=== PATIENT | male | born 1940 | race Two or more races ===

== ENCOUNTER → 2017-12-30 | Outpatient (CLI) | payer OTHER | END | disposition home or self-care (01) | LOC: RAD 501 14:48 | DX: M79.642 Pain in left hand (principal); M25.532 Pain in left wrist ==

== ENCOUNTER 2017-12-31 09:02 | Outpatient (CLI) | payer OTHER | END 2017-12-31 09:18 | disposition home or self-care (01) | LOC: RAD 09:02 → LAB 09:02 → RAD 09:18 | DX: M10.9 Gout, unspecified (principal); M13.88 Other specified arthritis, other site; D64.89 Other specified anemias; E88.89 Other specified metabolic disorders; D68.8 Other specified coagulation defects; N39.0 Urinary tract infection, site not specified; A49.02 Methicillin resistant Staphylococcus aureus infection, unspecified site; Z76.89 Persons encountering health services in other specified circumstances ==

== ENCOUNTER 2018-01-04 10:47 | Outpatient (CLI) | payer OTHER ==
[2018-01-09] MEDS ORDERED: COZAAR50 MG PO (11:47)
[2018-01-09] MEDS ORDERED: SYNTHROID125 MCG PO (11:47)
[2018-01-09] MEDS ORDERED: ZOCOR20 MG PO (11:48)
== END 2018-01-04 10:59 | disposition home or self-care (01) ==
LOC: NUCLEAR 10:47
DX: M81.0 Age-related osteoporosis without current pathological fracture (principal)

== ENCOUNTER → 2018-01-04 11:14 | Outpatient (CLI) | payer OTHER ==
[~2018-01-04 11:14] MED LIST: COZAAR50 MG PO; SYNTHROID125 MCG PO; ZOCOR20 MG PO
== END | disposition home or self-care (01) ==
LOC: EKG 11:14
DX: I49.8 Other specified cardiac arrhythmias (principal)

== ENCOUNTER 2018-01-12 12:20 | Outpatient (CLI) | payer OTHER | END 2018-01-12 12:29 | disposition home or self-care (01) | LOC: RAD 12:20 | DX: M25.522 Pain in left elbow (principal); M79.632 Pain in left forearm ==

== ENCOUNTER 2018-01-27 09:50 | Outpatient (CLI) | payer OTHER | END 2018-01-27 09:57 | disposition home or self-care (01) | LOC: NUCLEAR 09:50 | DX: M79.642 Pain in left hand (principal); M75.102 Unspecified rotator cuff tear or rupture of left shoulder, not specified as traumatic | CPT/HCPCS: 78315; A9503 ==

== ENCOUNTER → 2018-02-02 08:10 | Outpatient (CLI) | payer OTHER | END | disposition home or self-care (01) | LOC: LAB 08:10 | DX: D64.89 Other specified anemias (principal); E88.89 Other specified metabolic disorders; D68.8 Other specified coagulation defects; N39.0 Urinary tract infection, site not specified; M06.4 Inflammatory polyarthropathy ==

== ENCOUNTER 2018-02-02 09:13 | Outpatient (CLI) | payer OTHER | END 2018-02-02 17:07 | disposition home or self-care (01) | LOC: MRI 09:13 | DX: M48.44XA Fatigue fracture of vertebra, thoracic region, initial encounter for fracture (principal) | CPT/HCPCS: 72146 ==

== ENCOUNTER 2018-02-13 05:29 | Day surgery (SDC) | payer OTHER | END 2018-02-13 14:05 | disposition home or self-care (01) | LOC: CIR.AMB 05:29 | DX: M75.122 Complete rotator cuff tear or rupture of left shoulder, not specified as traumatic (principal); M65.812 Other synovitis and tenosynovitis, left shoulder; M19.012 Primary osteoarthritis, left shoulder ==

== ENCOUNTER 2018-06-05 10:52 | Outpatient (CLI) | payer OTHER | END 2018-06-05 10:58 | disposition home or self-care (01) | LOC: RAD 10:52 | DX: M75.122 Complete rotator cuff tear or rupture of left shoulder, not specified as traumatic (principal) ==

== ENCOUNTER 2019-05-24 06:33 | Outpatient (CLI) | payer OTHER | END 2019-05-24 15:00 | disposition home or self-care (01) | LOC: LAB 06:33 | DX: D64.89 Other specified anemias (principal); E88.89 Other specified metabolic disorders; D68.8 Other specified coagulation defects; N39.0 Urinary tract infection, site not specified; Z22.322 Carrier or suspected carrier of Methicillin resistant Staphylococcus aureus; I49.8 Other specified cardiac arrhythmias; I10 Essential (primary) hypertension; Z76.89 Persons encountering health services in other specified circumstances; M75.121 Complete rotator cuff tear or rupture of right shoulder, not specified as traumatic ==

== ENCOUNTER 2019-05-29 07:42 | Day surgery (SDC) | payer OTHER | END 2019-05-29 16:35 | disposition home or self-care (01) | LOC: CIR.AMB 07:42 | DX: M75.121 Complete rotator cuff tear or rupture of right shoulder, not specified as traumatic (principal); M25.311 Other instability, right shoulder; M75.21 Bicipital tendinitis, right shoulder ==